=== PATIENT | female | born 1980 | race Caucasian/White ===

== ENCOUNTER → 2017-07-14 | Outpatient (CLI) | payer MEDICAID ==
[~2017-07-14] MED LIST: BACTRIM DS 8001 TA1 PO; BACTROBAN2% TP; MOTRIN 600MG.600 MG PO; ZANTAC 300300 M1 PO; ZOFRAN ODT4 MG PO
[2017-07-14 16:25] LABS: HEMOGLOBIN 12.1 g/dL (12.2-16.2); LYMPH # 2.1 K/mm3 (0.7-4.5); LYMPH % 27.9 % (10-50.0)
[2017-07-14 18:23] LABS: BUN 7 mg/dL (7-18); GFR (ESTIMATED) 113 ML/MIN (59-)
[2017-07-17 06:37] LABS: Vitamin D, 25-Hydroxy 28.8 ng/mL (30.0-100.0)
== END ==
LOC: LAB 15:19
PROVIDERS: Nurse Practitioner Family
DX: R21 Rash and other nonspecific skin eruption (principal)